=== PATIENT | female | born 1965 | race Caucasian/White ===

== ENCOUNTER 2017-02-22 14:39 | Observation (INO) | payer OTHER ==
[2017-02-22] MEDS ORDERED: NS 1,000 ML IV ONE (14:57)
--- NOTE | 2017-02-22 15:03 | EDPHY ---
H & P Time Seen by Provider: 02/22/17 14:48 HPI/ROS: CHIEF COMPLAINT: Palpitations HISTORY OF PRESENT ILLNESS: This 51-year-old woman has a family history of atrial fibrillation. She has had several episodes of intermittent palpitations and tachycardia over the last 2 months about once a week. The longest one lasted 30 min. They were not correlated with time of day or activity or anything that she can think of. Today at 2:35 p.m. she noticed sudden onset of rapid heart rate, palpitations, racing pulse. Symptoms moderate and just like her previous episodes over the last 2 months. Not associated with syncope or dizziness or lightheadedness or near syncope. No chest pain or shortness of breath. No leg swelling. No cough or hemoptysis. REVIEW OF SYSTEMS: Eye: no change in vision ENT: No ENT symptoms Cardiac: no chest pain or syncope, occasionally feels her heart skip a beat Pulmonary: no SOB Abdomen: No recent intestinal symptoms, does not have reason to be dehydrated. Musculoskeletal: No leg swelling or leg pain Skin: no rash Neuro: no headache Constitutional: No recent illnesses : No symptoms A comprehensive 10 point review of systems is otherwise negative aside from elements mentioned in the history of present illness. PAST MEDICAL HISTORY: Includes hysterectomy, appendectomy, hormone replacement therapy. 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 Family history: Negative for venous thromboembolism, positive for atrial fibrillation. General Appearance: Alert and conversant, cooperative. Eyes: No scleral icterus. ENT, Mouth: Normal mucous membranes. Respiratory: Normal respiratory effort, breath sounds equal, lungs are clear to auscultation. Cardiovascular: Regular rate and rhythm. Tachycardic, no murmur. Gastrointestinal: Abdomen is soft and non tender. Neurological: Alert, cooperative, ambulatory. Skin: Warm and dry, no rashes. Musculoskeletal: No calf tenderness or swelling. Psychiatric: Not agitated. Emergency Department course/MDM: EKG reviewed shows sinus tachycardia at 1:24 a.m. although when I interview her her heart rate is about 105 and also in sinus with occasional PVCs. Low pretest likelihood for pulmonary embolism, D-dimer ordered. TSH, CBC chemistries, troponin. IV normal saline 1 L. 1537: Discussed with Hyun for cardiology. Will consult in ED, here at 1620. D -dimer and troponin are negative. TSH is normal. Admit per Hyun for monitoring and further evaluation, echo ordered in ED at his request. Smoking Status: Never smoked Constitutional: Initial Vital Signs Temperature (C) 36.5 C 02/22/17 14:45 Heart Rate 121 H 02/22/17 14:45 Respiratory Rate 18 02/22/17 14:45 Blood Pressure 138/91 H 02/22/17 14:45 O2 Sat (%) 100 02/22/17 14:45 O2 Delivery Mode Room Air Allergies/Adverse Reactions: latex Allergy (Verified 02/22/17 15:33) Home Medications: Medication Instructions Recorded Levothyroxine 11/16/14 Testosterone 11/16/14 Aspirin 325 mg (*) 02/22/17 Estrogens, Conjugated 02/22/17 Fish Oil 1000 mg (*) 02/22/17 Tumeric 02/22/17 Medical Decision Making - Diagnostics EKG Interpretation: 12-lead EKG interpreted by me; official reading is in trace master. My interpretation is sinus tachycardia with left axis deviation. Differential Diagnosis: Differential diagnosis considered for narrow complex tachycardia including but not limited to various causes of sinus tachycardia, SVT, atrial flutter and atrial fibrillation. - Data Points Laboratory Results: Laboratory Results 02/22/17 14:45 02/22/17 14:45 02/22/17 02/22/17 02/22/17 14:45 14:45 14:45 WBC 10.16 10^3/uL H 10^3/uL (3.80-9.50) RBC 4.63 10^6/uL 10^6/uL (4.18-5.33) Hgb 14.8 g/dL g/dL (12.6-16.3) Hct 41.6 % % (38.0-47.0) MCV 89.8 fL fL (81.5-99.8) MCH 32.0 pg pg (27.9-34.1) MCHC 35.6 g/dL g/dL (32.4-36.7) RDW 13.0 % % (11.5-15.2) Plt Count 289 10^3/uL 10^3/uL (150-400) MPV 11.6 fL fL (8.7-11.7) Neut % (Auto) 51.5 % % (39.3-74.2) Lymph % (Auto) 37.8 % % (15.0-45.0) [place] % (Auto) 9.1 % % (4.5-13.0) Eos % (Auto) 1.0 % % (0.6-7.6) Baso % (Auto) 0.3 % % (0.3-1.7) Nucleat RBC Rel Count 0.0 % % (0.0-0.2) Absolute Neuts (auto) 5.24 10^3/uL 10^3/uL (1.70-6.50) Absolute Lymphs (auto) 3.84 10^3/uL H 10^3/uL (1.00-3.00) Absolute Monos (auto) 0.92 10^3/uL H 10^3/uL (0.30-0.80) Absolute Eos (auto) 0.10 10^3/uL 10^3/uL (0.03-0.40) Absolute Basos (auto) 0.03 10^3/uL 10^3/uL (0.02-0.10) Absolute Nucleated RBC 0.00 10^3/uL 10^3/uL (0-0.01) Immature Gran % 0.3 % % (0.0-1.1) Immature Gran # 0.03 10^3/uL 10^3/uL (0.00-0.10) D-Dimer < 0.27 ug/mLFEU ug/mLFEU (0.00-0.50) Sodium 142 mEq/L mEq/L (135-145) Potassium 3.6 mEq/L mEq/L (3.5-5.2) Chloride 104 mEq/L mEq/L (97-110) Carbon Dioxide 22 mEq/l mEq/l (22-31) Anion Gap 16 mEq/L mEq/L (8-16) BUN 14 mg/dL mg/dL (7-23) Creatinine 0.8 mg/dL mg/dL (0.6-1.0) Estimated GFR > 60 Glucose 136 mg/dL H mg/dL (70-100) Calcium 10.2 mg/dL mg/dL (8.5-10.4) Troponin I < 0.012 ng/mL ng/mL (0.000-0.034) TSH 2.060 uIU/mL uIU/mL (0.465-4.680) Medications Given: Discontinued Medications Sodium Chloride (Ns) 1,000 mls @ 0 mls/hr IV EDNOW ONE; Wide Open PRN Reason: Protocol Stop: 02/22/17 14:58 Last Admin: 02/22/17 14:52 Dose: 1,000 mls Departure - Departure Disposition: [facility] Inpatient Acute Clinical Impression: Tachycardia Condition: Good
[2017-02-22 15:07] LABS: PLATELET COUNT 289 10^3/uL (150-400)
--- NOTE | 2017-02-22 15:10 | CPEKG ---
Heart Rate: 129 RR Interval: 465 P-R Interval: 140 QRSD Interval: 92 QT Interval: 304 QTC Interval: 446 P [place]: 65 QRS [place]: -62 T Wave [place]: 60 EKG Severity - ABNORMAL ECG - EKG Impression: SINUS TACHYCARDIA EKG Impression: LEFT ANTERIOR FASCICULAR BLOCK EKG Impression: ABNRM R PROG, CONSIDER ASMI OR LEAD PLACEMENT Electronically Signed By: Reddy Flaherty 22-Feb-2017 16:19:14
[2017-02-22] MEDS ORDERED: ACETAMINOPHEN 325 MG TAB PO PRN (17:01)
[2017-02-22] MEDS ORDERED: ONDANSETRON 4 MG/2 ML VIAL IVP PRN (17:01)
[2017-02-22] MEDS ORDERED: ONDANSETRON DISINTEGRATING 4 MG TAB PO PRN (17:01)
--- NOTE | 2017-02-22 17:47 | GHP ---
[f rep st] HISTORY AND PHYSICAL DATE OF ADMISSION: 02/22/2017 CHIEF COMPLAINT: Tachycardia and palpitations. 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 Of note is that for the past several months, she has had intermittent but brief symptoms of a sensation of rapid heartbeat. She has a strong family history of atrial fibrillation in her father, her paternal aunt, and other family members including her broth er. She recently drove to [place] and came back around the [facility], and since that time, she has had more prominent symptoms of a sensation of pounding and tachycardia in her chest with noted heart rates that are relatively rapid. She has also noted occasional, if not infrequent, PVCs that are occ urring with more frequency than usual over this same timeframe. Her episodes of tachycardia have not occurred when she was at work and could be on the monitor. They have also not occurred and lasted l onger than 5 or 10 minutes. However, today, the patient experienced an episode of tachycardia which has continued and was initially in the 120s range. She was concerned that she may be in atrial fibri llation, and presented to the hospital for further evaluation. The patient was evaluated in the [facility] department by Dr. Reddy Andrews, and was found to be in sinus rhythm. The EKG showed sinus rhythm with borderline left anterior fascicular block and nonspecific ST-T abnormalities with minimal ST-seg ment depression in V1, lead I and lead II. She does have a left axis deviation. I was asked to see the patient in consultation because of those findings. PAST MEDICAL HISTORY: Significant for hypothyroidism. REVIEW OF SYSTEMS: A 10-point review of systems was otherwise negative except as noted in the HPI, o ther than a history of gastroesophageal reflux-type symptoms with a prior endoscopy which showed eros ions in the gastric fundus near where she experienced abdominal pain. MEDICATIONS: Her only medications include an adult dose aspirin at 325 mg daily, as well as Synthroi d. She also takes fish oil, and other supplements. ALLERGIES: She is not known to be allergic to any medications. PAST SURGICAL HISTORY: Significant for an appendectomy at age 68, and at age 43, she had a total abd ominal hysterectomy because of uterine fibroids and history of ectopic x2 when she was florence ellyn. FAMILY HISTORY: Pertinent for the fact that her paternal grandfather, who was a traveling salesman a nd smoked a significant amount, suddenly and unexpectedly at 47 in a grocery store, and an autop sy was not performed. His diagnosis would be most consistent with a sudden cardiac as it was u nexpected and not within the timeframe of having seen a physician. This was, of course, of unknown c ause. It is not known whether or not he had had chest pain syndrome prior to his collapse. The david ent's brother had a history of atrial fibrillation when being treated with CellCept, as well as a his tory of brief ventricular tachycardia. Her father had atrial fibrillation and was noted to have a sm all stroke, and apparently, stopped taking his amiodarone because of concerns about pulmonary fibrosi s. He was a hr generalist physician in [place], [place], and had been exercising which he did a lmost daily, went out to go get the mail and collapsed suddenly and unexpectedly. An autopsy was per formed, and it was an autopsy-negative arrest. PHYSICAL EXAMINATION: GENERAL: Today, the patient appears calm and unworried. VITAL SIGNS: Her bl ood pressure is 138/91, heart rate ranges from 97-121, her respirations are 16 and unlabored, oxygen saturation is 97% on room air. NECK: Reveals no JVD or carotid bruit. HEART: Reveals normal S1 an d S2 with a systolic murmur over the aortic area. I do not appreciate an S3 or S4 gallop. LUNGS: C lear to auscultation bilaterally without wheezes, rales or rhonchi. ABDOMEN: Benign, with positive bowel sounds. It is nondistended and nontender. I do not appreciate hepatosplenomegaly. EXTREMITIE S: Warm, dry, and well-perfused, without significant peripheral edema. LABORATORY STUDIES: Reveal a TSH which is in the normal range at 2.060. Troponin I is less than 0.0 12. Nonfasting glucose 136, potassium 3.6, BUN and creatinine are 14 and 0.8. The D-dimer is less t franz 0.27, which is normal range. Her white count is mildly elevated at 10.16, H and H of 14.8 and 41 .6, platelet count of 289. IMPRESSION/PLAN: The patient has unexplained sinus tachycardia with associated intermittent chest pr essure. She has had a history of murmur in the past, and will be slated to receive an echocardiogram . I also heard bowel sounds in her chest during the physical examination, which can sometimes be ass ociated with a sliding hiatal hernia. I would like to obtain a PA and lateral chest x-ray on her way to the floor. I do think that given the patient's family history of sudden cardiac in both he r father and paternal grandfather, that she be admitted for a period of observation. I would like to rule her out for myocardial infarction with serial EKG and isoenzymes, which I think will be negativ e given the patient's young age. I would also like to look for malignant or life-threatening cardiac rhythm disturbance. She may be a candidate for a nuclear stress test in the morning if her workup i s otherwise negative. I have ordered an echocardiogram, the PA and lateral chest x-ray, serial tropo snehal and EKGs. On the differential is pulmonary embolus; however, with a negative D-dimer and a low pretest probabil ity, I think the likelihood of a pulmonary embolus would be less than 2% in this particular patient gena polanco. If there is evidence of right heart dilation or strain, then a CT pulmonary angiogram could be considered. Copy requested to: /[id number]/MODL
--- NOTE | 2017-02-22 19:06 | CPEKG ---
Heart Rate: 95 RR Interval: 632 P-R Interval: 180 QRSD Interval: 90 QT Interval: 376 QTC Interval: 473 P [place]: 51 QRS [place]: -41 T Wave [place]: 55 EKG Severity - ABNORMAL ECG - EKG Impression: SINUS RHYTHM EKG Impression: LEFT AXIS DEVIATION EKG Impression: ABNRM R PROG, CONSIDER ASMI OR LEAD PLACEMENT Electronically Signed By: Reddy Flaherty 22-Feb-2017 19:36:22
--- NOTE | 2017-02-23 09:03 | CPEKG ---
Heart Rate: 70 RR Interval: 857 P-R Interval: 204 QRSD Interval: 92 QT Interval: 408 QTC Interval: 441 P [place]: 24 QRS [place]: -37 T Wave [place]: 56 EKG Severity - ABNORMAL ECG - EKG Impression: SINUS RHYTHM EKG Impression: LEFT AXIS DEVIATION EKG Impression: ABNRM R PROG, CONSIDER ASMI OR LEAD PLACEMENT Electronically Signed By: Gagan Rush 23-Feb-2017 15:23:54
--- NOTE | 2017-02-23 10:41 | ASMTCASEMG ---
Living Arrangements What is your living Answers: With Spouse arrangement? Who do you live with? Type Of Residence What kind of residence do Answers: House you live in? Discharge Plan Comments Coordination Status Comments Notes: Pt is a 51 y/o female admitted for tachycardia. 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 Pt will most likely d/c independent when medically stable. No therapies ordered at this time. CM available for changes. Plan: Independent Date Signed: 02/23/2017 10:40 AM Electronically Signed By:LIU Mclean
--- NOTE | 2017-02-23 13:26 | PDCARPN ---
Cardiology Progress Note Chief Complaint: Sinus tachycardia, chest pressure, palpitations Assessment/Plan: Assessment: I reevaluated the patent. Her telemetry report throughout the night showed unifocal PVC's with a single couplet. I have discussed the case with Dr. Piña and he will do a formal EP evaluation. The patient continues to feel intermittent palpitations and rapid heart rate. Her echocardiogram performed yesterday reveals a structurally normal heart with no major valvular disease. Her chest x-ray was normal. Serial troponin was normal. There is concern because of the patient's family history of sudden cardiac . Plan for EP consultation by Dr. Piña. She will have a nuclear stress test performed today to evaluate for myocardial ischemia. We plan for EP consultation with Dr. Piña because of her history of sudden in her paternal grandfather and sudden cardiac of her father, which was autopsy negative. 02/23/17 14:42 Reviewed/Discussed With: family, hospitalist Objective: Vital Signs (8 Hrs) Temp Pulse Resp BP Pulse Ox 02/23/17 11:34 37.1 C 85 16 116/78 95 02/23/17 08:50 36.8 C 74 14 116/73 99 Intake/Output (24 Hrs) 02/22/17 02/23/17 02/24/17 05:59 05:59 05:59 Intake Total 1900 Balance 1900 Intake: Oral (ml) 900 IV Infused (ml) 1000 Other: Weight 72.575 kg Number of Voids 1 Toilet 2 Result Diagrams: 02/22/17 14:45 02/22/17 14:45 Cardiac Labs: Cardiac Lab Results (72 Hrs) 02/23/17 03:54 Troponin I < 0.012 EKG: sinus tachycardia with left axis deviation Telemetry: Unifocal PVC's with single couplet seen on overnight telemetry. Echocardiogram: Her echocardiogram performed yesterday reveals a structurally normal heart with no major valvular disease. ICD10 Worksheet Patient Problems: Problems Problem Status Onset Tachycardia Acute
--- NOTE | 2017-02-23 13:44 | ECHO ---
[email or web address] [address] Main: [phone] Fax: Transthoracic Echocardiogram Name: SALINA RIGGS MR#: [id number] Study Date: 02/22/2017 Study Time: 05:11 PM Date of : 1965 Age: 51 year(s) Height: 165.1 cm (65 in.) Weight: 74.84 kg (165 lb.) BSA: 1.82 m2 Gender: Female Examination: Echo Indication: Tachycardia Image Quality: Contrast: Requested by: Reddy Flaherty BP: 149 mmHg/80 mmHg Heart Rate: Rhythm: Indication: Tachycardia Procedure Staff Processing Manager: Darlene Ferrari Reading Physician: Froilan Purvis Requesting Provider: Conclusions: Normal size left ventricle. No LV hypertrophy. Normal global systolic LV function. The ejection fraction is estimated to be 70-75 %. No regional wall motion abnormality. Normal size right ventricle. The right atrium is normal in size. The mitral valve is normal in appearance and function. The aortic valve is normal in appearance and function. The tricuspid valve is normal in appearance and function. The pulmonic valve is normal in appearance and function. Normal size aortic root measuring 3.2 cm. Trivial anterior pericardial effusion. Measurements: Chambers Valvular Assessment AV/MV Valvular Assessment TV/PV Normal Normal Normal Name Value Range Name Value Range Name Value Range Ao Merle (MM): 3.2 cm (2.2 cm-3.7 AV Vmax: 1.83 m/s (1 m/s-1.7 PV Vmax: 1.45 m/s (0.6 m/s-0.9 cm) m/s) m/s) IVSd (2D): 0.7 cm (0.6 cm-1.1 AV maxP mmHg ( - ) PV PGmax: 8 mmHg ( - ) cm) AV meanP mmHg ( - ) LVDd (2D): 4.9 cm (3.9 cm-5.3 MV E Vmax: 0.69 m/s ( - ) cm) MV A Vmax: 0.89 m/s ( - ) LVDs (2D): 3.1 cm (2.1 cm-4 MV E/A: 0.78 ( - ) cm) LVPWd (2D): 0.7 cm ( - ) LVEF (2D): 67 (>=54 %) EF Range: 70-75 % Patient: SALINA RIGGS Study Date: 02/22/2017 Page 1 of 2 05:11 PM Continued Measurements: Chambers Valvular Assessment AV/MV Name Value Name Value LADs: 2.6 cm MV E/E' Septal: 8.20 LADs Lon.7 cm MV E/E' Lateral: 6.90 LA Area: 15.4 cm2 Findings: Left Ventricle: Normal size left ventricle. No LV hypertrophy. Normal global systolic LV function. The ejection fraction is estimated to be 70-75 %. No regional wall motion abnormality. Right Ventricle: Normal size right ventricle. Left Atrium: The left atrium is normal in size. Right Atrium: The right atrium is normal in size. Mitral Valve: The mitral valve is normal in appearance and function. Trivial mitral valve regurgitation. Aortic Valve: The aortic valve is normal in appearance and function. Tricuspid Valve: The tricuspid valve is normal in appearance and function. Pulmonic Valve: The pulmonic valve is normal in appearance and function. Aorta: The aorta is normal. Normal size aortic root measuring 3.2 cm. Pericardium: Trivial anterior pericardial effusion. (No Signature Object) Patient: SALINA RIGGS Study Date: 02/22/2017 Page 2 of 2 05:11 PM [id number]
[2017-02-23] MEDS ORDERED: diphenhydrAMINE 25 MG CAP PO PRN (15:45)
[2017-02-24 04:05] LABS: PLATELET COUNT 288 10^3/uL (150-400)
[2017-02-24 04:16] LABS: INR 0.94 (0.83-1.16); PROTIME(PATIENT) 12.8 SEC (12.0-15.0)
[2017-02-24] MEDS ORDERED: LEVOTHYROXINE 100 MCG TAB PO SCH (06:00)
[2017-02-24] MEDS ORDERED: MULTIVITAMINS 1 EACH TAB PO SCH (09:00)
[2017-02-24] MEDS ORDERED: ASPIRIN 325 MG TAB PO SCH (09:00)
[2017-02-24] MEDS ORDERED: NITROGLYCERIN 0.4 MG BTL SL PRN (10:11)
[2017-02-24] MEDS ORDERED: DIAZEPAM 5 MG TAB PO ONE (10:11)
[2017-02-24] MEDS ORDERED: FAMOTIDINE 20 MG TAB PO ONE (10:11)
[2017-02-24] MEDS ORDERED: TEMAZEPAM 15 MG CAP PO PRN (10:11)
[2017-02-24] MEDS ORDERED: NS 1,000 ML IV SCH (10:15)
[2017-02-24] MEDS ORDERED: FAMOTIDINE 20 MG TAB ONE (11:18)
[2017-02-24] MEDS ORDERED: DIAZEPAM 5 MG TAB ONE (11:18)
[2017-02-24] MEDS ORDERED: LIDOCAINE 1% 300 MG/30 ML SDV ONE (11:53)
[2017-02-24] MEDS ORDERED: fentaNYL 100 MCG/2 ML INJ ONE (11:53)
[2017-02-24] MEDS ORDERED: VERAPAMIL 5 MG/2 ML VIAL ONE (11:53)
[2017-02-24] MEDS ORDERED: MIDAZOLAM 2 MG/2 ML VIAL ONE (11:53)
[2017-02-24] MEDS ORDERED: HEPARIN 10,000 UNIT/10 ML MDV ONE (11:54)
[2017-02-24] MEDS ORDERED: IOPAMIDOL (ISOVUE-370) 150 ML BTL IV ONE (11:54)
--- NOTE | 2017-02-24 11:56 | PDPROPOC ---
Sedation Plan of Care Sedation Plan of Care: vital signs stable, mental status noted, patient educated of risks, benefits, alternatives, patient can tolerate sedation ASA Classification: ASA 3 Planned drugs: fentanyl, midazolam Mallampati Score: Class 3 Mallampati Reference Image: Patient passed 3-3-2 rule?: Yes
--- NOTE | 2017-02-24 11:56 | PDHPUP ---
History & Physical Update H&P update statement: This history and physical update is based on an assessment of the patient which was completed after admission or registration (within 24 hours), but prior to the surgery/procedure.
--- NOTE | 2017-02-24 12:27 | PDDXCAT ---
Diagnostic Cath Note - . Date: 02/24/17 [facility] Laboratory: [facility] Indication: other (Abnormal nuclear stress test) - Procedure Access: right wrist Procedure: left heart catheterization - Materials Left Heart Cath size: 5F Left Heart Cath materials: standard multipack (JL4, JR4, pigtail) - Findings-Left Heart Catheterization LM: It is 6mm in size. There is no evidence of flow limiting obstruction. ONEYDA III flow throughout. It bifurcates into an LAD and Circumflex system. The LM is relatively short. LAD: It is 4mm in size. The distal LAD is relatively small. There is no evidence of flow limiting obstruction. ONEYDA III flow throughout. LCX: It is 4mm in size. RCA: It is 3.5mm in size and is dominant. ONEYDA III flow throughout. No flow limiting obstruction identified. EDP: 16mmHg LVEF: 65%. There was no significant mitral regurgitation. The thoracic aorta reveals 3 sinsus of Valsalva most consistnet with a trileaflet aortic valve. Wall motion: The wall motion is normal. Complications: None. Estimated blood loss: <50ml Closure method: TR Band Assessment: There is no evidence of flow limiting obstruction. ONEYDA III flow throughout. This is a normal study. The nuclear stress test was reported to be consistent with scar. There is no evidence of prior W[place], therefore the nuclear stress test is considered to be a false positive study. Plan: The patient is to consider a workup with endocrinology to rule out a cause for intermittent inappropriate sinus tachycardia. Intervention: None. Patient Problems: Problems Problem Status Onset Tachycardia Acute
[2017-02-24] MEDS ORDERED: ATROPINE SULFATE 1 MG/10 ML SYR IVP PRN (12:56)
[2017-02-24 17:20] VITALS: BP 108/70; PULSE 69; RESP 16; TEMP 98.1; O2SAT 95
--- NOTE | 2017-02-24 19:24 | GDS ---
[f rep st] DISCHARGE SUMMARY ADMIT DIAGNOSIS: Inappropriate sinus tachycardia with premature ventricular contractions, as well as symptoms of palpitations. DISCHARGE DIAGNOSES: 1. Inappropriate sinus tachycardia, resolved. 2. Premature ventricular contractions with occasional couplets on monitoring. 3. Abnormal nuclear stress test, followed with cardiac catheterization, which was negative for flow- limiting obstruction of the patient's coronary arteries. HISTORY OF PRESENT ILLNESS: Please see the recently [facility] 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 The patient has a strong family history of atrial fibrillat ion, and was concerned about the possibility of atrial fibrillation in her own case. She recently tr aveled to [place], and then returned at the period around the time of . Since that time, s he had developed more prominent episodes of sustained tachycardia that lasted for minutes. On the da te of her presentation to the hospital, her symptoms lasted for quite some time, and ultimately, she presented to the emergency department, and an EKG was obtained. The patient was found to be in sinus tachycardia that was unrelenting with a normal D-dimer level, and therefore, she was [facility] given the patient's family history. HOSPITAL COURSE: The patient was admitted to the hospital given her history of recent travel, as wel l as her family history of sudden cardiac in both her father, which was actually autopsy-negati ve, as well as her paternal grandfather, who suddenly and unexpectedly at age 47. The patient w as admitted overnight for telemetry and noted to have frequent unifocal PVCs, as well as occasional c ouplets. Ultimately, the patient underwent nuclear stress testing. The EKG portion of the test was relatively normal other than the development of rate-related left anterior fascicular block and occas ional PVCs with early exercise. The patient's heart rate and blood pressure response to exercise wer e normal. The nuclear imaging came back with mass defects in the anterior wall and inferolateral are as suggestive of possible prior myocardial infarction. Although the wall motion in these areas was n ormal, the official interpretation was concern for myocardial infarction. Because of these findings, the patient underwent cardiac catheterization, revealing normal contractile function throughout the left ventricle with minimally elevated left ventricular end-diastolic pressure. The patient has a ri ght-dominant coronary system and no evidence of atherosclerosis that could be identified on the basis of carefully performed angiography. There was a relatively small distal LAD, which is probably a co ngenital issue, which may have caused differential perfusion in the anterior wall compared to the oth er zones of the heart. This may have led to the patient's false-positive nuclear stress test. It do es not, however, explain the inferolateral perfusion deficit that was noted on the study. EP consultation was also obtained during the hospitalization. The patient was offered beta blockers as a possible treatment. However, she has declined those at the present time. Recommendations were that the patient follow up with Endocrine for evaluation of her known hypothyroidism. TSH on this ad mission was normal. Dr. Piña of the Electrophysiology service also recommended consideration for wor kup of possible pheochromocytoma, but definitely for an Endocrine outpatient consultation. The patie nt will notify us and return to the hospital if she has recurrent chest discomfort, pressure or tight ness. At the time of her discharge from the hospital, she is in sinus rhythm at a rate of 70. Her w rist radial sheath placement site is clean and dry without significant bleeding. She is to be discha rged home in good and stable condition. Will be on a regular diet. She is on wrist precautions for the next week. 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 She knows to return promptly to the emergency department should she experience ches t discomfort, pressure, tightness, or other clinical symptoms of concern. Her discharge medications are to include aspirin 325 mg daily, which she takes chronically, and levot hyroxine 100 mcg daily. Copy requested to: /[id number]/MODL
--- NOTE | 2017-02-25 14:03 | ASDISCHSUM ---
Discharge Information Plan Status:Home with No Needs Medically Cleared to Leave: Discharge Date:02/24/2017 05:40 PM CM D/C Disposition:Home, Routine, Self-Care ADT D/C Disposition:Home, Routine, Self-Care Projected Discharge Date:02/24/2017 05:40 PM Transportation at D/C:Family Discharge Delay Reason: Follow-Up Date:02/24/2017 05:40 PM Discharge Slot: Final Diagnosis: Placement Information Patient Contact Information Contact Name:NICHOLE Relationship: Address:[address] [place] Alternate Phone: [facility]/Zip Code:[place] [address] Email: Financial Information Financial Class:[employer] [facility] [employer] Primary Plan Desc:[facility] Primary Plan Number:[id number] Secondary Plan Desc: Secondary Plan Number: Assessment Information [facility] Initial CM Assessment Living Arrangements What is your living Answers: With Spouse arrangement? Who do you live with? Type Of Residence What kind of residence do Answers: House you live in? Discharge Plan Comments Coordination Status Comments Notes: Pt is a 51 y/o female admitted for tachycardia. 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 Pt will most likely d/c independent when medically stable. No therapies ordered at this time. CM available for changes. Plan: Independent Date Signed: 02/23/2017 10:40 AM Electronically Signed By:LIU Mclean Intervention Information
== END 2017-02-24 17:40 | disposition home or self-care (01) ==
LOC: F2W 19:03
PROVIDERS: ADMIT Internal Medicine Cardiovascular Disease; ATTEND Internal Medicine Cardiovascular Disease
PROC: B2111ZZ Fluoroscopy of Multiple Coronary Arteries using Low Osmolar Contrast (ICD-10-PCS; principal; 2017-02-22)
PROC: 4A023N7 Measurement of Cardiac Sampling and Pressure, Left Heart, Percutaneous Approach (ICD-10-PCS; principal; 2017-02-22)
PROC: B2151ZZ Fluoroscopy of Left Heart using Low Osmolar Contrast (ICD-10-PCS; principal; 2017-02-22)
DX: R00.0 Tachycardia, unspecified (principal); I49.3 Ventricular premature depolarization; R94.39 Abnormal result of other cardiovascular function study
CPT/HCPCS: 71046; 78452; 93005; 93017; 93306; 93458; 96360; 99285; A9500; G0378; J1644; J2250; J3010; Q9967

== ENCOUNTER → 2017-05-10 | Outpatient (CLI) | payer OTHER | LOC: FIMAGING 11:49 | PROVIDERS: ATTEND Family Medicine | DX: Z12.31 Encounter for screening mammogram for malignant neoplasm of breast (principal); Z79.890 Hormone replacement therapy ==